=== PATIENT | female | born 1975 | race Native Hawaiian/Other Pacific Islander ===

== ENCOUNTER 2020-04-26 23:22 | Emergency (ER) | payer OTHER ==
[~2020-04-26] VITALS: Ht 172.7 cm; Wt 90.7 kg
[2020-04-27 00:37] VITALS: BP 164/75; TEMP 98
== END 2020-04-27 00:37 | disposition home or self-care (01) ==
LOC: ED 23:22
DX: K08.89 Other specified disorders of teeth and supporting structures (principal)
CPT/HCPCS: 96372; 99283; J0696; J1885

== ENCOUNTER 2021-07-23 13:05 | Outpatient (CLI) | payer OTHER | END 2021-07-23 19:43 | disposition home or self-care (01) | LOC: MRI 13:05 | PROVIDERS: ATTEND Physician Assistant | DX: M54.12 Radiculopathy, cervical region (principal); M75.112 Incomplete rotator cuff tear or rupture of left shoulder, not specified as traumatic ==

== ENCOUNTER 2023-04-21 11:36 | Outpatient (CLI) | payer OTHER | END 2023-04-21 20:22 | disposition home or self-care (01) | LOC: RAD 11:36 | PROVIDERS: ATTEND Physician Assistant | DX: M25.551 Pain in right hip (principal); M25.552 Pain in left hip ==